=== PATIENT | female | born 1980 | race African-American/Black ===

== ENCOUNTER 2017-03-30 22:19 | Emergency (ER) | payer MEDICAID ==
[~2017-03-30] VITALS: Ht 175.3 cm; Wt 78.9 kg
[2017-03-30] MEDS ORDERED: NKM (22:32)
[2017-03-30 22:35] VITALS: BP 123/79
[2017-03-30 22:43] VITALS: BP 123/79
[2017-03-30] MEDS ORDERED: POLYTRIM OP SOL10 ML OPHTHALM (22:43)
[2017-03-30] MEDS ORDERED: NEXAFED30 MG ORAL (22:43)
--- NOTE | 2017-03-30 22:43 | Emergency Room Report ---
History of Present Illness General Chief Complaint: Sore Throat Source: Patient Present Illness HPI Is a 36-year-old female with no significant past medical history. She presents with chief complaint of sore throat for the last 2-3 days. Also with congestion and runny nose. Now with discharge from the left eye. No nausea no vomiting. Cough is nonproductive in nature. No diarrhea. Pain is 5/10. No drooling. Allergies: Coded Allergies: No Known Allergies (Unverified , 03/30/17) Patient History Past Medical History: none, see triage record, old chart reviewed Past Surgical History: none Pertinent Family History: none Social History: Denies: smoking Last Menstrual Period: February Now: No Immunizations: other Reviewed Nursing Documentation: PMH: Agreed, PSxH: Agreed Nursing Documentation-PM Past Medical History: No Stated History Review of Systems Eye: Reports: nose congestion, Denies: blurred vision, eye pain ENT: Reports: nose congestion, throat pain, Denies: ear pain, throat swelling Respiratory: Denies: cough, shortness of breath Cardiovascular: Denies: chest pain, palpitations Gastrointestinal: Denies: abdominal pain, diarrhea, nausea, vomiting Musculoskeletal: Denies: back pain, joint pain Skin: Denies: rash Neurological: Denies: headache, numbness Endocrine: Denies: increased thirst, increased urine Hematologic/Lymphatic: Denies: easy bruising All Other Systems: negative except mentioned in HPI Physical Exam Vital Signs Date Time Temp Pulse Resp B/P Pulse Ox O2 Delivery O2 Flow Rate FiO2 03/30/17 22:29 97.5 80 16 123/79 97 Room Air vitals normal Sp02 EP Interpretation: reviewed, normal General Appearance: well appearing, no apparent distress, alert Head: normocephalic, atraumatic Eyes: left eye other - Discharge, bilateral eye EOMI, bilateral eye PERRL ENT: hearing grossly normal, normal pharynx Neck: full range of motion, supple, no meningismus Respiratory: chest non-tender, lungs clear, normal breath sounds Cardiovascular #1: regular rate, rhythm, no murmur Gastrointestinal: normal bowel sounds, non tender, no mass, no organomegaly, no bruit, non-distended Musculoskeletal: back normal, gait/station normal, normal range of motion Psychiatric: mood/affect normal Skin: warm/dry Medical Decision Making Diagnostic Impression: Primary Impression: Viral upper respiratory infection ER Course Patient presents with a viral illness. Unlikely bacterial conjunctivitis. We' ll discharge home. No evidence of sepsis, pneumonia, strep throat or a tonsillar abscess. Last Vital Signs Date Time Temp Pulse Resp B/P Pulse Ox O2 Delivery O2 Flow Rate FiO2 03/30/17 22:35 97.5 16 123/79 97 Room Air 03/30/17 22:29 80 Status: unchanged Disposition: HOME, SELF-CARE Condition: Stable Scripts Pseudoephedrine Hcl* (NEXAFED*) 30 Mg Tablet 60 MG ORAL Q6H Y for congestion, #30 TAB Prov: ZOEY SRIVASTAVA M.D. 03/30/17 Polymyxin/Trimethoprim (Polytrim Eye Drops) 10 Ml Drops 2 DROP OPHTHALM THREE TIMES A DAY, #1 EA Instill in affected eye for 7 days Prov: ZOEY SRIVASTAVA M.D. 03/30/17 Additional Instructions: Followup with your Dr. in 7 days. Return if symptom worsen. ZOEY SRIVASTAVA M.D. Mar 30, 2017 22:43
== END 2017-03-30 22:50 | disposition home or self-care (01) ==
LOC: EMR 22:47
DX: J06.9 Acute upper respiratory infection, unspecified (principal); B34.9 Viral infection, unspecified
CPT/HCPCS: 99284